=== PATIENT | female | born 1990 | race African-American/Black ===

== ENCOUNTER 2021-09-11 21:56 | Emergency (ER) | payer OTHER, SELFPAY ==
--- OUTSIDE RECORDS SUMMARY | 2021-09-11 22:04 | XMS REPORT | Continuity of Care Document ---
:[address] [facility] t Address [address] [place] [address] Care Team Providers Name Role Phone PCP, PATIENT DOES NOT HAVE A Primary Care Physician Unavaila RITESH Menard Attending Clinician Unavailable Ritesh Reyes Attending Clinician STEFANO ESTEBAN Attending Clinician Unavailable STEFANO ESTEBAN Attending Clinician Unavailable Stefano Esteban MD Attending Clinician Doctor Unassigned, [place] Attending Clinician Unavailable 1, [facility] Attending Clinician Unavailable Only, [facility] Test Attending Clinician Unavailable Kevin Philip MD Attending Clinician Roberto Mcnally DO Attending Clinician KEVIN PHILIP Attending Clinician Unavailable Lana Hewitt RN Attending Clinician Unavailable Pcp, Patient Does Not Have A Attending Clinician [phone] Jac Ramirez Attending Clinician PETEY ALVAREZ Attending Clinician Unavailable PETEY ALVAREZ Admitting Clinician Unavailable Payers Payer Name Policy Type Policy Number Effective Date Expiration Date Adelso TAYLOR [id number] 2020 ADMINISTRATION 00:00:00 [facility] [id number] 2020 00:00:00 [facility] [id number] 2016 00:00:00 Problems Condition Condition Condition Status Onset Resolution Last Treating Co mments Source Name Details Category Date Date Treatment Clinician Date S/P tubal S/P tubal Disease Active Uni vers ligation ligation 3-29 ity of 00:00: [place] 00 Medical Branch Need for Need for Disease Active 2014-02 Unive rs prophylact prophylact 0-05 it y of ic ic 00:00: [place] vaccinatio vaccinatio 00 Me dical n and n and Branch inoculatio inoculatio n against n against influenza influenza Supervisio Supervisio Disease Active 2014-02 U nivers n of n of 0-05 ity of high-risk high[place] 00:[place] [facility] with with Branch insufficie insufficie nt nt care, care, second second trimester trimester History of History of Disease Active 2014-02 U nivers depression depression 0-05 it y of 00:00: [place] 00 Medical Branch Headache Headache Disease Active Overview: Un eddie 9-28 ICD10 ity of 00:00: Diagnosis [place] 00 Term Medical [employer] Branch Utility Vaginal Vaginal Disease Active Univers bleeding bleeding 9-28 ity of before 22 before 22 00:00[place] 00 Medical gestation gestation Bran ch Atopic Atopic Disease Active Overview: Univer s dermatitis dermatitis 6-06 ICD10 it y of and and 00:00: Diagnosis [place] related related 00 Term Medical condition condition [employer] Br anch Utility 38 weeks 38 weeks Disease Resolve 2015-022016-02-18 2016-02-18 Univers gestation gestation d 2-13 00:00:00 16:33:30 ity of of of 00:00: [place] 00 [facility] Liveborn Liveborn Disease Resolve 2015-022016-02-18 2016-02-18 Univers infant by by d 2-13 00:00:00 16:33:30 ity of vaginal vaginal 00:00: [place] [facility] 36 weeks Disease Resolve 2015-022016-02-18 2016-02-18 Univers gestation gestation d 2-02 00:00:00 16:33:30 ity of of of 00:00: [place] 00 [facility] Diarrhea Diarrhea Disease Resolve 2015-022016-02-18 2016-02-18 Univers d 2-02 00:00:00 16:33:30 ity of 00:00: [place] 00 Medical Branch Threatened Threatened Disease Resolve 2015-022016-02-18 2016-02-18 Univers premature premature d 2-02 00:00:00 16:33:30 ity of labor labor 00:00: [place] affecting affecting 00 [facility] , , Br anch less than less than 37 weeks 37 weeks in third in third trimester, trimester, antepartum antepartum Allergies, Adverse Reactions, Alerts Allergy Allergy Status Severity Reaction(s) Onset Inactive Treating Comm ents Source Name Type Date Date Clinician Seafood/ Propensi Active Itching 2014-02 Unive rs Fish ty to 0-05 ity of adverse 00:00: [place] reaction 00 Medical s Branch SEAFOOD/ Food Active Hives 2014-02 Univers FISH 0-05 ity of 00:00: [place] 00 Medical Branch Social History Social Habit Start Date Stop Date Quantity Comments Source Exposure to Not sure [facility] SARS-CoV-2 [facility] (event) Branch History of Cigarette Smoker Universi ty of tobacco use [facility] Tobacco use and 2020-04-28 2020-04-28 Never used Universit y of exposure 00:00:00 00:00:00 [facility] Alcohol intake 2020-04-28 2020-04-28 Current University 00:00:00 00:00:00 non-drinker of [facility] [place] alcohol (finding) Branch Sex [birth year] Universit y of 00:00:00 00:00:00 [facility] Smoking Status Start Date Stop Date Source Never smoker [facility] Medications Ordered Filled Start Stop Current Ordering Indication Dosage Frequency Signature Comments Components Source Medication Medication Date Date Medication? Clinician (SIG) Name Name tetracaine 2021- No 1[drp] 1 Drop, U nivers (PONTOCAINE 04-02 Right Eye, i ty of ) 0.5 % 17:30: 16:46 ONCE, 1 [place] ophthalmic 00 :00 dose, On Medic al drops 1 Sat Branch Drop 04/02/21 at 1130, Routine fluorescein 2021- No 1{strip 1 Strip, Univers (FUL-MARGARITA) 04-02 } Right Eye, ity of ophthalmic 17:30: 16:46 ONCE, 1 [place] as strip 1 00 :00 dose, On Medical Strip Sat Branch 04/02/21 at 1130, SHAI
Fa culty member approving Non-formul tram medication : RITESH BALDWIN
Reason for non-formul tram use: SPECIFIC INDICATION FOR NONFORMULA RY PRODUCT PNV 2020- No Take by [facility]35-IRON-FA 2-03 02-03 mouth. ity o f #6-DHA ORAL 17:16: 00:00 [place] 20 :00 Medical Branch PNV 2020- No Take by [facility]35-IRON-FA 2-03 02-03 mouth. ity o f #6-DHA ORAL 17:16: 00:00 [place] 20 :00 [facility] Branch fluticasone Yes INSTILL 1 U nivers propionate 1-21 SPRAY IN [facility] 50 00:00: EACH [place] mcg/actuati 00 NOSTRIL Medic al on nasal TWICE A Branch spray DAY NEEDED FOR ALLERGIES fluticasone 2020-0 Yes INSTILL 1 U nivers propionate 1-21 SPRAY IN [facility] 50 00:00: EACH [place] mcg/actuati 00 NOSTRIL Medic al on nasal TWICE A Branch spray DAY NEEDED FOR ALLERGIES fluticasone 2020-0 Yes INSTILL 1 U nivers propionate 1-21 SPRAY IN [facility] 50 00:00: EACH [place] mcg/actuati 00 NOSTRIL Medic al on nasal TWICE A Branch spray DAY NEEDED FOR ALLERGIES fluticasone 2020-0 Yes INSTILL 1 U nivers propionate 1-21 SPRAY IN [facility] 50 00:00: EACH [place] mcg/actuati 00 NOSTRIL Medic al on nasal TWICE A Branch spray DAY NEEDED FOR ALLERGIES fluticasone 2020-0 Yes INSTILL 1 U nivers propionate 1-21 SPRAY IN [facility] 50 00:00: EACH [place] mcg/actuati 00 NOSTRIL Medic al on nasal TWICE A Branch spray DAY NEEDED FOR ALLERGIES fluticasone 2020-0 Yes INSTILL 1 U nivers propionate 1-21 SPRAY IN [facility] 50 00:00: EACH [place] mcg/actuati 00 NOSTRIL Medic al on nasal TWICE A Branch spray DAY NEEDED FOR ALLERGIES fluticasone 2020-0 Yes INSTILL 1 U nivers propionate 1-21 SPRAY IN [facility] 50 00:00: EACH [place] mcg/actuati 00 NOSTRIL Medic al on nasal TWICE A Branch spray DAY NEEDED FOR ALLERGIES fluticasone 2020-0 Yes INSTILL 1 U nivers propionate 1-21 SPRAY IN [facility] 50 00:00: EACH [place] mcg/actuati 00 NOSTRIL Medic al on nasal TWICE A Branch spray DAY NEEDED FOR ALLERGIES fluticasone 2020-0 Yes INSTILL 1 U nivers propionate 1-21 SPRAY IN [facility] 50 00:00: EACH [place] mcg/actuati 00 NOSTRIL Medic al on nasal TWICE A Branch spray DAY NEEDED FOR ALLERGIES fluticasone 2020-0 Yes INSTILL 1 U nivers propionate 1-21 SPRAY IN [facility] 50 00:00: EACH [place] mcg/actuati 00 NOSTRIL Medic al on nasal TWICE A Branch spray DAY NEEDED FOR ALLERGIES fluticasone 2020-0 Yes INSTILL 1 U nivers propionate 1-21 SPRAY IN [facility] 50 00:00: EACH [place] mcg/actuati 00 NOSTRIL Medic al on nasal TWICE A Branch spray DAY NEEDED FOR ALLERGIES fluticasone 2020-0 Yes INSTILL 1 U nivers propionate 1-21 SPRAY IN [place] [address] 00:00: EACH [place] mcg/actuati 00 NOSTRIL Medic al on nasal TWICE A Branch spray DAY NEEDED FOR ALLERGIES fluticasone 2020-0 Yes INSTILL 1 U nivers propionate 1-21 SPRAY IN [facility] 50 00:00: EACH [place] mcg/actuati 00 NOSTRIL Medic al on nasal TWICE A Branch spray DAY NEEDED FOR ALLERGIES fluticasone 2020-0 Yes INSTILL 1 U nivers propionate 1-21 SPRAY IN [facility] 50 00:00: EACH [place] mcg/actuati 00 NOSTRIL Medic al on nasal TWICE A Branch spray DAY NEEDED FOR ALLERGIES fluticasone 2020-0 Yes INSTILL 1 U nivers propionate 1-21 SPRAY IN [facility] 50 00:00: EACH [place] mcg/actuati 00 NOSTRIL Medic al on nasal TWICE A Branch spray DAY NEEDED FOR ALLERGIES fluticasone 2020-0 Yes INSTILL 1 U nivers propionate 1-21 SPRAY IN [facility] 50 00:00: EACH [place] mcg/actuati 00 NOSTRIL Medic al on nasal TWICE A Branch spray DAY NEEDED FOR ALLERGIES fluticasone 2020-0 Yes INSTILL 1 U nivers propionate 1-21 SPRAY IN ity o f 50 00:00: EACH [place] mcg/actuati 00 NOSTRIL Medic al on nasal TWICE A Branch spray DAY NEEDED FOR ALLERGIES fluticasone Yes INSTILL 1 U nivers propionate 1-21 SPRAY IN ity o f 50 00:00: EACH [place] mcg/actuati 00 NOSTRIL Medic al on nasal TWICE A Branch spray DAY NEEDED FOR ALLERGIES fluticasone Yes INSTILL 1 U nivers propionate 1-21 SPRAY IN ity o f 50 00:00: EACH [place] mcg/actuati 00 NOSTRIL Medic al on nasal TWICE A Branch spray DAY NEEDED FOR ALLERGIES fluticasone Yes INSTILL 1 U nivers propionate 1-21 SPRAY IN ity o f 50 00:00: EACH [place] mcg/actuati 00 NOSTRIL Medic al on nasal TWICE A Branch spray DAY NEEDED FOR ALLERGIES traZODone 2019-02 Yes TAKE ONE Univ ers 50 mg 0-26 TABLET BY ity of tablet 00:00: MOUTH AT [place] 00 BEDTIME Medical NEEDED FOR Branch SLEEP DO NOT TAKE WITH FLUCONAZOL E traZODone 2019-02 Yes TAKE ONE Univ ers 50 mg 0-26 TABLET BY ity of tablet 00:00: MOUTH AT [place] [address] BEDTIME Medical NEEDED FOR Branch SLEEP DO NOT TAKE WITH FLUCONAZOL E traZODone 2019-02 Yes TAKE ONE Univ ers 50 mg 0-26 TABLET BY ity of tablet 00:00: MOUTH AT [place] [address] BEDTIME Medical NEEDED FOR Branch SLEEP DO NOT TAKE WITH FLUCONAZOL E traZODone 2019-02 Yes TAKE ONE Univ ers 50 mg 0-26 TABLET BY ity of tablet 00:00: MOUTH AT [place] 00 BEDTIME Medical NEEDED FOR Branch SLEEP DO NOT TAKE WITH FLUCONAZOL E traZODone 2019-02 Yes TAKE ONE Univ ers 50 mg 0-26 TABLET BY ity of tablet 00:00: MOUTH AT [place] 00 BEDTIME Medical NEEDED FOR Branch SLEEP DO NOT TAKE WITH FLUCONAZOL E traZODone 2019-02 Yes TAKE ONE Univ ers 50 mg 0-26 TABLET BY ity of tablet 00:00: MOUTH AT [place] 00 BEDTIME Medical NEEDED FOR Branch SLEEP DO NOT TAKE WITH FLUCONAZOL E traZODone 2019-02 Yes TAKE ONE Univ ers 50 mg 0-26 TABLET BY ity of tablet 00:00: MOUTH AT [place] 00 BEDTIME Medical NEEDED FOR Branch SLEEP DO NOT TAKE WITH FLUCONAZOL E traZODone 2019-02 Yes TAKE ONE Univ ers 50 mg 0-26 TABLET BY ity of tablet 00:00: MOUTH AT [place] 00 BEDTIME Medical NEEDED FOR Branch SLEEP DO NOT TAKE WITH FLUCONAZOL E traZODone 2019-02 Yes TAKE ONE Univ ers 50 mg 0-26 TABLET BY ity of tablet 00:00: MOUTH AT [place] BEDTIME Medical NEEDED FOR Branch SLEEP DO NOT TAKE WITH FLUCONAZOL E traZODone 2019-02 Yes TAKE ONE Univ ers 50 mg 0-26 TABLET BY ity of tablet 00:00: MOUTH AT [place] BEDTIME Medical NEEDED FOR Branch SLEEP DO NOT TAKE WITH FLUCONAZOL E traZODone 2019-02 Yes TAKE ONE Univ ers 50 mg 0-26 TABLET BY ity of tablet 00:00: MOUTH AT [place] BEDTIME Medical NEEDED FOR Branch SLEEP DO NOT TAKE WITH FLUCONAZOL E traZODone 2019-02 Yes TAKE ONE Univ ers 50 mg 0-26 TABLET BY ity of tablet 00:00: MOUTH AT [place] BEDTIME Medical NEEDED FOR Branch SLEEP DO NOT TAKE WITH FLUCONAZOL E traZODone 2019-02 Yes TAKE ONE Univ ers 50 mg 0-26 TABLET BY ity of tablet 00:00: MOUTH AT [place] BEDTIME Medical NEEDED FOR Branch SLEEP DO NOT TAKE WITH FLUCONAZOL E traZODone 2019-02 Yes TAKE ONE Univ ers 50 mg 0-26 TABLET BY ity of tablet 00:00: MOUTH AT [place] 00 BEDTIME Medical NEEDED FOR Branch SLEEP DO NOT TAKE WITH FLUCONAZOL E traZODone 2019-02 Yes TAKE ONE Univ ers 50 mg 0-26 TABLET BY ity of tablet 00:00: MOUTH AT [place] [address] BEDTIME Medical NEEDED FOR Branch SLEEP DO NOT TAKE WITH FLUCONAZOL E traZODone 2019-02 Yes TAKE ONE Univ ers 50 mg 0-26 TABLET BY ity of tablet 00:00: MOUTH AT [place] 00 BEDTIME Medical NEEDED FOR Branch SLEEP DO NOT TAKE WITH FLUCONAZOL E traZODone 2020- Yes TAKE ONE Univ ers 50 mg 0-26 TABLET BY ity of tablet 00:00: MOUTH AT [place] 00 BEDTIME Medical NEEDED FOR Branch SLEEP DO NOT TAKE WITH FLUCONAZOL E traZODone 2019- Yes TAKE ONE Univ ers 50 mg 0-26 TABLET BY ity of tablet 00:00: MOUTH AT [place] 00 BEDTIME Medical NEEDED FOR Branch SLEEP DO NOT TAKE WITH FLUCONAZOL E traZODone 2019- Yes TAKE ONE Univ ers 50 mg 0-26 TABLET BY ity of tablet 00:00: MOUTH AT [place] 00 BEDTIME Medical NEEDED FOR Branch SLEEP DO NOT TAKE WITH FLUCONAZOL E traZODone 2019- Yes TAKE ONE Univ ers 50 mg 0-26 TABLET BY ity of tablet 00:00: MOUTH AT [place] 00 BEDTIME Medical NEEDED FOR Branch SLEEP DO NOT TAKE WITH FLUCONAZOL E albuterol 2020-0 Yes INHALE 1 Univ ers 90 9-15 PUFF BY ity of mcg/actuati 00:00: MOUTH [place] on inhaler 00 EVERY 6 Medica l HOURS Branch NEEDED FOR BREATHING buPROPion 2020-0 Yes TAKE ONE Univ ers XL 150 mg 9-15 TABLET BY ity o f 24 hr 00:00: MOUTH [place] tablet 00 DAILY Medical Branch cetirizine 2020-0 Yes TAKE ONE Uni vers 10 mg 9-15 TABLET BY ity of tablet 00:00: MOUTH 00 TWICE A Medical DAY Branch NEEDED FOR ALLERGIES albuterol 2020-0 Yes INHALE 1 Univ ers 90 9-15 PUFF BY ity of mcg/actuati 00:00: MOUTH [place] on inhaler 00 EVERY 6 Medica l HOURS Branch NEEDED FOR BREATHING buPROPion 2020-0 Yes TAKE ONE Univ ers XL 150 mg 9-15 TABLET BY ity o f 24 hr 00:00: MOUTH [place] tablet 00 DAILY Medical Branch cetirizine 2020-0 Yes TAKE ONE Uni vers 10 mg 9-15 TABLET BY ity of tablet 00:00: MOUTH [place] 00 TWICE A Medical DAY Branch NEEDED FOR ALLERGIES albuterol 2020-0 Yes INHALE 1 Univ ers 90 9-15 PUFF BY ity of mcg/actuati 00:00: MOUTH [place] on inhaler 00 EVERY 6 Medica l HOURS Branch NEEDED FOR BREATHING buPROPion 2020-0 Yes TAKE ONE Univ ers XL 150 mg 9-15 TABLET BY ity o f 24 hr 00:00: MOUTH [place] tablet 00 DAILY Medical Branch cetirizine 2020-0 Yes TAKE ONE Uni vers 10 mg 9-15 TABLET BY ity of tablet 00:00: MOUTH [place] 00 TWICE A Medical DAY Branch NEEDED FOR ALLERGIES albuterol 2020-0 Yes INHALE 1 Univ ers 90 9-15 PUFF BY ity of mcg/actuati 00:00: MOUTH [place] on inhaler 00 EVERY 6 Medica l HOURS Branch NEEDED FOR BREATHING buPROPion 2020-0 Yes TAKE ONE Univ ers XL 150 mg 9-15 TABLET BY ity o f 24 hr 00:00: MOUTH [place] tablet 00 DAILY Medical Branch cetirizine 2020-0 Yes TAKE ONE Uni vers 10 mg 9-15 TABLET BY ity of tablet 00:00: MOUTH [place] 00 TWICE A Medical DAY Branch NEEDED FOR ALLERGIES albuterol 2020-0 Yes INHALE 1 Univ ers 90 9-15 PUFF BY ity of mcg/actuati 00:00: MOUTH [place] on inhaler 00 EVERY 6 Medica l HOURS Branch NEEDED FOR BREATHING buPROPion 2020-0 Yes TAKE ONE Univ ers XL 150 mg 9-15 TABLET BY ity o f 24 hr 00:00: MOUTH [place] tablet 00 DAILY Medical Branch cetirizine 2020-0 Yes TAKE ONE Uni vers 10 mg 9-15 TABLET BY ity of tablet 00:00: MOUTH [place] 00 TWICE A Medical DAY Branch NEEDED FOR ALLERGIES albuterol 2020-0 Yes INHALE 1 Univ ers 90 9-15 PUFF BY ity of mcg/actuati 00:00: MOUTH [place] on inhaler 00 EVERY 6 Medica l HOURS Branch NEEDED FOR BREATHING buPROPion 2020-0 Yes TAKE ONE Univ ers XL 150 mg 9-15 TABLET BY ity o f 24 hr 00:00: MOUTH [place] tablet 00 DAILY Medical Branch cetirizine 2020-0 Yes TAKE ONE Uni vers 10 mg 9-15 TABLET BY ity of tablet 00:00: MOUTH [place] 00 TWICE A Medical DAY Branch NEEDED FOR ALLERGIES albuterol 2020-0 Yes INHALE 1 Univ ers 90 9-15 PUFF BY ity of mcg/actuati 00:00: MOUTH [place] on inhaler 00 EVERY 6 Medica l HOURS Branch NEEDED FOR BREATHING buPROPion 2020-0 Yes TAKE ONE Univ ers XL 150 mg 9-15 TABLET BY ity o f 24 hr 00:00: MOUTH [place] tablet 00 DAILY Medical Branch cetirizine 2020-0 Yes TAKE ONE Uni vers 10 mg 9-15 TABLET BY ity of tablet 00:00: MOUTH [place] 00 TWICE A Medical DAY Branch NEEDED FOR ALLERGIES albuterol 2020-0 Yes INHALE 1 Univ ers 90 9-15 PUFF BY ity of mcg/actuati 00:00: MOUTH [place] on inhaler 00 EVERY 6 Medica l HOURS Branch NEEDED FOR BREATHING buPROPion 2020-0 Yes TAKE ONE Univ ers XL 150 mg 9-15 TABLET BY ity o f 24 hr 00:00: MOUTH [place] tablet 00 DAILY Medical Branch cetirizine 2020-0 Yes TAKE ONE Uni vers 10 mg 9-15 TABLET BY ity of tablet 00:00: MOUTH [place] 00 TWICE A Medical DAY Branch NEEDED FOR ALLERGIES albuterol 2020-0 Yes INHALE 1 Univ ers 90 9-15 PUFF BY ity of mcg/actuati 00:00: MOUTH [place] on inhaler 00 EVERY 6 Medica l HOURS Branch NEEDED FOR BREATHING buPROPion 2020-0 Yes TAKE ONE Univ ers XL 150 mg 9-15 TABLET BY ity o f 24 hr 00:00: MOUTH [place] tablet 00 DAILY Medical Branch cetirizine 2020-0 Yes TAKE ONE Uni vers 10 mg 9-15 TABLET BY ity of tablet 00:00: MOUTH [place] 00 TWICE A Medical DAY Branch NEEDED FOR ALLERGIES albuterol 2020-0 Yes INHALE 1 Univ ers 90 9-15 PUFF BY ity of mcg/actuati 00:00: MOUTH [place] on inhaler 00 EVERY 6 Medica l HOURS Branch NEEDED FOR BREATHING buPROPion 2020-0 Yes TAKE ONE Univ ers XL 150 mg 9-15 TABLET BY ity o f 24 hr 00:00: MOUTH [place] tablet 00 DAILY Medical Branch cetirizine 2020-0 Yes TAKE ONE Uni vers 10 mg 9-15 TABLET BY ity of tablet 00:00: MOUTH [place] 00 TWICE A Medical DAY Branch NEEDED FOR ALLERGIES albuterol 2020-0 Yes INHALE 1 Univ ers 90 9-15 PUFF BY ity of mcg/actuati 00:00: MOUTH [place] on inhaler 00 EVERY 6 Medica l HOURS Branch NEEDED FOR BREATHING buPROPion 2020-0 Yes TAKE ONE Univ ers XL 150 mg 9-15 TABLET BY ity o f 24 hr 00:00: MOUTH [place] tablet 00 DAILY Medical Branch cetirizine 2020-0 Yes TAKE ONE Uni vers 10 mg 9-15 TABLET BY ity of tablet 00:00: MOUTH [place] 00 TWICE A Medical DAY Branch NEEDED FOR ALLERGIES buPROPion 2020-0 Yes TAKE ONE Univ ers XL 150 mg 9-15 TABLET BY ity o f 24 hr 00:00: MOUTH [place] tablet 00 DAILY Medical Branch cetirizine 2020-0 Yes TAKE ONE Uni vers 10 mg 9-15 TABLET BY ity of tablet 00:00: MOUTH [place] 00 TWICE A Medical DAY Branch NEEDED FOR ALLERGIES albuterol 2020-0 Yes INHALE 1 Univ ers 90 9-15 PUFF BY ity of mcg/actuati 00:00: MOUTH [place] on inhaler 00 EVERY 6 Medica l HOURS Branch NEEDED FOR BREATHING buPROPion 2020-0 Yes TAKE ONE Univ ers XL 150 mg 9-15 TABLET BY ity o f 24 hr 00:00: MOUTH [place] tablet 00 DAILY Medical Branch cetirizine 2020-0 Yes TAKE ONE Uni vers 10 mg 9-15 TABLET BY ity of tablet 00:00: MOUTH [place] 00 TWICE A Medical DAY Branch NEEDED FOR ALLERGIES albuterol 2020-0 Yes INHALE 1 Univ ers 90 9-15 PUFF BY ity of mcg/actuati 00:00: MOUTH [place] on inhaler 00 EVERY 6 Medica l HOURS Branch NEEDED FOR BREATHING buPROPion 2020-0 Yes TAKE ONE Univ ers XL 150 mg 9-15 TABLET BY ity o f 24 hr 00:00: MOUTH [place] tablet 00 DAILY Medical Branch cetirizine 2020-0 Yes TAKE ONE Uni vers 10 mg 9-15 TABLET BY ity of tablet 00:00: MOUTH [place] 00 TWICE A Medical DAY Branch NEEDED FOR ALLERGIES albuterol 2020-0 Yes INHALE 1 Univ ers 90 9-15 PUFF BY ity of mcg/actuati 00:00: MOUTH [place] on inhaler 00 EVERY 6 Medica l HOURS Branch NEEDED FOR BREATHING buPROPion 2020-0 Yes TAKE ONE Univ ers XL 150 mg 9-15 TABLET BY ity o f 24 hr 00:00: MOUTH [place] tablet 00 DAILY Medical Branch cetirizine 2020-0 Yes TAKE ONE Uni vers 10 mg 9-15 TABLET BY ity of tablet 00:00: MOUTH [place] 00 TWICE A Medical DAY Branch NEEDED FOR ALLERGIES albuterol 2020-0 Yes INHALE 1 Univ ers 90 9-15 PUFF BY ity of mcg/actuati 00:00: MOUTH on inhaler 00 EVERY 6 Medica l HOURS Branch NEEDED FOR BREATHING buPROPion 2020-0 Yes TAKE ONE Univ ers XL 150 mg 9-15 TABLET BY ity o f 24 hr 00:00: MOUTH [place] tablet 00 DAILY Medical Branch cetirizine 2020-0 Yes TAKE ONE Uni vers 10 mg 9-15 TABLET BY ity of tablet 00:00: MOUTH [place] 00 TWICE A Medical DAY Branch NEEDED FOR ALLERGIES albuterol 2020-0 Yes INHALE 1 Univ ers 90 9-15 PUFF BY ity of mcg/actuati 00:00: MOUTH on inhaler 00 EVERY 6 Medica l HOURS Branch NEEDED FOR BREATHING buPROPion 2020-0 Yes TAKE ONE Univ ers XL 150 mg 9-15 TABLET BY ity o f 24 hr 00:00: MOUTH [place] tablet 00 DAILY Medical Branch cetirizine 2020-0 Yes TAKE ONE Uni vers 10 mg 9-15 TABLET BY ity of tablet 00:00: MOUTH 00 TWICE A Medical DAY Branch NEEDED FOR ALLERGIES albuterol 2020-0 Yes INHALE 1 Univ ers 90 9-15 PUFF BY ity of mcg/actuati 00:00: MOUTH on inhaler 00 EVERY 6 Medica l HOURS Branch NEEDED FOR BREATHING buPROPion 2020-0 Yes TAKE ONE Univ ers XL 150 mg 9-15 TABLET BY ity o f 24 hr 00:00: MOUTH [place] tablet 00 DAILY Medical Branch cetirizine 2020-0 Yes TAKE ONE Uni vers 10 mg 9-15 TABLET BY ity of tablet 00:00: MOUTH [place] 00 TWICE A Medical DAY Branch NEEDED FOR ALLERGIES albuterol 2020-0 Yes INHALE 1 Univ ers 90 9-15 PUFF BY ity of mcg/actuati 00:00: MOUTH [place] on inhaler 00 EVERY 6 Medica l HOURS Branch NEEDED FOR BREATHING buPROPion 2020-0 Yes TAKE ONE Univ ers XL 150 mg 9-15 TABLET BY ity o f 24 hr 00:00: MOUTH [place] tablet 00 DAILY Medical Branch cetirizine 2020-0 Yes TAKE ONE Uni vers 10 mg 9-15 TABLET BY ity of tablet 00:00: MOUTH [place] 00 TWICE A Medical DAY Branch NEEDED FOR ALLERGIES albuterol 2020-0 Yes INHALE 1 Univ ers 90 9-15 PUFF BY ity of mcg/actuati 00:00: MOUTH [place] on inhaler 00 EVERY 6 Medica l HOURS Branch NEEDED FOR BREATHING buPROPion 2020-0 Yes TAKE ONE Univ ers XL 150 mg 9-15 TABLET BY ity o f 24 hr 00:00: MOUTH [place] tablet 00 DAILY Medical Branch cetirizine 2020-0 Yes TAKE ONE Uni vers 10 mg 9-15 TABLET BY ity of tablet 00:00: MOUTH [place] 00 TWICE A Medical DAY Branch NEEDED FOR ALLERGIES albuterol 2020-0 Yes INHALE 1 Univ ers 90 9-15 PUFF BY ity of mcg/actuati 00:00: MOUTH [place] on inhaler 00 EVERY 6 Medica l HOURS Branch NEEDED FOR BREATHING ibuprofen 2020-0 2020- No 800mg 800 mg, Uni vers (IBU) -27 07-22 Oral, ity of tablet 800 22:45: 21:46 ONCE, 1 Rob as mg 00 :00 dose, [facility] 07/28/19 at Branch 1745, SHAI benzonatate 2020-0 Yes [id number] 200mg Take 1 Univers 200 mg 6-22 capsule by ity of capsule 00:00: mouth 3 00 (three) Medical times Branch daily as needed for Cough for up to 20 doses. ondansetron 2020-0 Yes [id number] 4mg Take 1 Univers (ZOFRAN 6-22 tablet by ity of ODT) 4 mg 00:00: mouth [place] disintegrat 00 every 8 Medic al ing tablet (eight) Branch hours as needed for Nausea and Vomiting (N/V). benzonatate 2020-0 Yes [id number] 200mg Take 1 Univers 200 mg 6-22 capsule by ity of capsule 00:00: mouth 3 [place] 00 (three) Medical times Branch daily as needed for Cough for up to 20 doses. ondansetron 2020-0 Yes [id number] 4mg Take 1 Univers (ZOFRAN 6-22 tablet by ity of ODT) 4 mg 00:00: mouth [place] disintegrat 00 every 8 Medic al ing tablet (eight) Branch hours as needed for Nausea and Vomiting (N/V). benzonatate 2020-0 Yes [id number] 200mg Take 1 Univers 200 mg 6-22 capsule by ity of capsule 00:00: mouth 3 (three) Medical times Branch daily as needed for Cough for up to 20 doses. ondansetron 2020-0 Yes [id number] 4mg Take 1 Univers (ZOFRAN 6-22 tablet by ity of ODT) 4 mg 00:00: mouth [place] disintegrat 00 every 8 Medic al ing tablet (eight) Branch hours as needed for Nausea and Vomiting (N/V). benzonatate 2020-0 Yes [id number] 200mg Take 1 Univers 200 mg 6-22 capsule by ity of capsule 00:00: mouth 3 [place] (three) Medical times Branch daily as needed for Cough for up to 20 doses. ondansetron 2020-0 Yes [id number] 4mg Take 1 Univers (ZOFRAN 6-22 tablet by ity of ODT) 4 mg 00:00: mouth [place] disintegrat 00 every 8 Medic al ing tablet (eight) Branch hours as needed for Nausea and Vomiting (N/V). benzonatate 2020-0 Yes [id number] 200mg Take 1 Univers 200 mg 6-22 capsule by ity of capsule 00:00: mouth 3 [place] 00 (three) Medical times Branch daily as needed for Cough for up to 20 doses. ondansetron 2020-0 Yes [id number] 4mg Take 1 [facility] (ZOFRAN 6-22 tablet by ity of ODT) 4 mg 00:00: mouth [place] disintegrat 00 every 8 Medic al ing tablet (eight) Branch hours as needed for Nausea and Vomiting (N/V). benzonatate 2020-0 Yes [id number] 200mg Take 1 [facility] 200 mg 6-22 capsule by ity of capsule 00:00: mouth 3 (three) Medical times Branch daily as needed for Cough for up to 20 doses. ondansetron 2020-0 Yes [id number] 4mg Take 1 [facility] (ZOFRAN 6-22 tablet by ity of ODT) 4 mg 00:00: mouth [place] disintegrat 00 every 8 Medic al ing tablet (eight) Branch hours as needed for Nausea and Vomiting (N/V). benzonatate 2020-0 2021- No [id number] 200mg Take 1 [facility] 200 mg 6-22 02-03 capsule by ity of capsule 00:00: 00:00 mouth 3 [place] 00 :00 (three) Medical times Branch daily as needed for Cough for up to 20 doses. ondansetron 2020- No [id number] 4mg Take 1 [facility] (ZOFRAN 07-27- tablet by ity of ODT) 4 mg 00:00: 00:00 mouth [place] disintegrat 00 :00 every 8 Medic al ing tablet (eight) Branch hours as needed for Nausea and Vomiting (N/V). benzonatate 2020- No [id number] 200mg Take 1 [facility] 200 mg 07-27 capsule by ity of capsule 00:00: 00:00 mouth 3 [place] 00 :00 (three) Medical times Branch daily as needed for Cough for up to 20 doses. ondansetron 2020- No [id number] 4mg Take 1 [facility] (ZOFRAN 07-27- tablet by ity of ODT) 4 mg 00:00: 00:00 mouth [place] disintegrat 00 :00 every 8 Medic al ing tablet (eight) Branch hours as needed for Nausea and Vomiting (N/V). PNV 2017 Yes Take by [facility] [id number] 1-19 mouth. ity of #6-DHA ORAL 17:59: [address] PNV Yes Take by [facility] #[id number] 1-19 mouth. ity of #6-DHA ORAL 17:59: [address] Yes Take by [facility] #[id number] 1-19 mouth. ity of #6-DHA ORAL 17:59: [address] PNV Yes Take by [facility] #[id number] 1-19 mouth. ity of #6-DHA ORAL 17:59: [address] PNV Yes Take by [facility] #[id number] 1-19 mouth. ity of #6-DHA ORAL 17:59: [address] PNV 2017 Yes Take by [facility] #[id number] 1-19 mouth. ity of #6-DHA ORAL 17:59: [address] ibuprofen 2015- Yes 600mg Take 1 [facility] rs (MOTRIN) 2-14 tablet by ity of 600 mg 00:00: mouth [place] tablet 00 every 6 Medical (six) Branch hours as needed for Pain (scale 1-3) or Pain (scale 4-6). Take with food or milk. 2015-02 Yes 1{tbl} Take 1 [facility] vitamin 2-14 tablet by ity of w/FA 00:00: mouth [place] (PRENATABS 00 daily. Medical RX) tablet Branch ferrous 2015-02 Yes 325mg Take 1 [facility] sulfate 325 2-14 tablet by ity of mg (65 mg 00:00: mouth 2 [place] iron) 00 (two) Medical tablet times Branch daily. docusate 2015-02 Yes 240mg Take 1 [facility] calcium 2-14 capsule by ity of (SURFAK) 00:00: mouth once [place] 240 mg 00 daily as Medical capsule needed for Branch Constipati on. ibuprofen 2015-02 Yes 600mg Take 1 [facility] (MOTRIN) 2-14 tablet by ity of 600 mg 00:00: mouth [place] tablet 00 every 6 Medical (six) Branch hours as needed for Pain (scale 1-3) or Pain (scale 4-6). Take with food or milk. 2015-02 Yes 1{tbl} Take 1 [facility] vitamin 2-14 tablet by ity of w/FA 00:00: mouth [place] (PRENATABS 00 daily. Medical RX) tablet Branch ferrous 2015-02 Yes 325mg Take 1 [facility] sulfate 325 2-14 tablet by ity of mg (65 mg 00:00: mouth 2 [place] iron) 00 (two) Medical tablet times Branch daily. docusate 2015-02 Yes 240mg Take 1 [facility] calcium 2-14 capsule by ity of (SURFAK) 00:00: mouth once [place] 240 mg 00 daily as Medical capsule needed for Branch Constipati on. ibuprofen 2015-02 Yes 600mg Take 1 [facility] (MOTRIN) 2-14 tablet by ity of 600 mg 00:00: mouth [place] tablet 00 every 6 Medical (six) Branch hours as needed for Pain (scale 1-3) or Pain (scale 4-6). Take with food or milk. 2015-02 Yes 1{tbl} Take 1 [facility] vitamin 2-14 tablet by ity of w/FA 00:00: mouth [place] (PRENATABS 00 daily. Medical RX) tablet Branch ferrous 2015-02 Yes 325mg Take 1 [facility] sulfate 325 2-14 tablet by ity of mg (65 mg 00:00: mouth 2 [place] iron) 00 (two) Medical tablet times Branch daily. docusate 2015-02 Yes 240mg Take 1 Un[facility] s calcium 2-14 capsule by ity of (SURFAK) 00:00: mouth once [place] 240 mg 00 daily as Medical capsule needed for Branch Constipati on. ibuprofen 2015-02 Yes 600mg Take 1 [facility] rs (MOTRIN) 2-14 tablet by ity of 600 mg 00:00: mouth [place] tablet 00 every 6 Medical (six) Branch hours as needed for Pain (scale 1-3) or Pain (scale 4-6). Take with food or milk. 2015-02 Yes 1{tbl} Take 1 [facility] vitamin 2-14 tablet by ity of w/FA 00:00: mouth [place] (PRENATABS 00 daily. Medical RX) tablet Branch ferrous 2015-02 Yes 325mg Take 1 [facility] sulfate 325 2-14 tablet by ity of mg (65 mg 00:00: mouth 2 [place] iron) 00 (two) Medical tablet times Branch daily. docusate 2015-02 Yes 240mg Take 1 [facility] calcium 2-14 capsule by ity of (SURFAK) 00:00: mouth once [place] 240 mg 00 daily as Medical capsule needed for Branch Constipati on. ibuprofen 2015-02 Yes 600mg Take 1 [facility] (MOTRIN) 2-14 tablet by ity of 600 mg 00:00: mouth [place] tablet 00 every 6 Medical (six) Branch hours as needed for Pain (scale 1-3) or Pain (scale 4-6). Take with food or milk. 2015-02 Yes 1{tbl} Take 1 [facility] rs vitamin 2-14 tablet by ity of w/FA 00:00: mouth [place] (PRENATABS 00 daily. Medical RX) tablet Branch ferrous 2015-02 Yes 325mg Take 1 [facility] sulfate 325 2-14 tablet by ity of mg (65 mg 00:00: mouth 2 [place] iron) 00 (two) Medical tablet times Branch daily. docusate 2015-02 Yes 240mg Take 1 Univer s calcium 2-14 capsule by ity of (SURFAK) 00:00: mouth once [place] 240 mg 00 daily as Medical capsule needed for Branch Constipati on. ibuprofen 2015-02 Yes 600mg Take 1 [facility] rs (MOTRIN) 2-14 tablet by ity of 600 mg 00:00: mouth [place] tablet 00 every 6 Medical (six) Branch hours as needed for Pain (scale 1-3) or Pain (scale 4-6). Take with food or milk. 2015-02 Yes 1{tbl} Take 1 [facility] rs vitamin 2-14 tablet by ity of w/FA 00:00: mouth [place] (PRENATABS 00 daily. Medical RX) tablet Branch ferrous 2015-02 Yes 325mg Take 1 [facility] sulfate 325 2-14 tablet by ity of mg (65 mg 00:00: mouth 2 [place] iron) 00 (two) Medical tablet times Branch daily. docusate 2015-02 Yes 240mg Take 1 Univer s calcium 2-14 capsule by ity of (SURFAK) 00:00: mouth once [place] 240 mg 00 daily as Medical capsule needed for Branch Constipati on. ferrous 2015-02- No 325mg Take 1 Univer s sulfate 325 2-14 02-03 tablet by it y of mg (65 mg 00:00: 00:00 mouth 2 [place] iron[place] 00 :00 (two) Medical tablet times Branch daily. docusate 2015-02- No 240mg Take 1 Unive rs calcium 2-14 02-03 capsule by ity o f (SURFAK) 00:00: 00:00 mouth once [place] 240 mg 00 :00 daily as Medical capsule needed for Branch Constipati on. ibuprofen 2015-02- No 600mg Take 1 Univ ers (MOTRIN) 2-14 02-03 tablet by ity o f 600 mg 00:00: 00:00 mouth [place] tablet 00 :00 every 6 Medical (six) Branch hours as needed for Pain (scale 1-3) or Pain (scale 4-6). Take with food or milk. 2015-02- No 1{tbl} Take 1 Univ ers vitamin 2-14 02-03 tablet by ity of w/FA 00:00: 00:00 mouth [place] (PRENATABS 00 :00 daily. Medical RX) tablet Branch ferrous 2015-02- No 325mg Take 1 Univer s sulfate 325 2-14 02-03 tablet by it y of mg (65 mg 00:00: 00:00 mouth [place] iron[place] 00 :00 (two) Medical tablet times Branch daily. docusate 2015-02- No 240mg Take 1 Unive rs calcium 2-14 02-03 capsule by ity o f (SURFAK) 00:00: 00:00 mouth once [place] 240 mg 00 :00 daily as Medical capsule needed for Branch Constipati on. ibuprofen 2015-02- No 600mg Take 1 Univ ers (MOTRIN) 03-21 tablet by ity o f 600 mg 00:00: 00:00 mouth [place] tablet 00 :00 every 6 Medical (six) Branch hours as needed for Pain (scale 1-3) or Pain (scale 4-6). Take with food or milk. 2015-02- No 1{tbl} Take 1 Univ ers vitamin 03-21 tablet by ity of w/FA 00:00: 00:00 mouth [place] (PRENATABS 00 :00 daily. Medical RX) tablet Branch Immunizations Ordered Filled Immunization Date Status Comments [facility] e Immunization Name Name Influenza Virus 2018-11-11 Completed Universit y of Vaccine 00:00:00 [facility] Influenza Virus 2018-11-11 Completed Universit y of Vaccine 00:00:00 [facility] Influenza Virus 2018-11-11 Completed Universit y of Vaccine 00:00:00 [facility] Influenza Virus 2018-11-11 Completed Universit y of Vaccine 00:00:00 [facility] Influenza Virus 2018-11-11 Completed Universit y of Vaccine 00:00:00 [facility] Influenza Virus 2018-11-11 Completed Universit y of Vaccine 00:00:00 [facility] Influenza Virus 2018-11-11 Completed Universit y of Vaccine 00:00:00 [facility] Influenza Virus 2018-11-11 Completed Universit y of Vaccine 00:00:00 [facility] Influenza Virus 2018-11-11 Completed Universit y of Vaccine 00:00:00 [facility] Influenza Virus 2018-11-11 Completed Universit y of Vaccine 00:00:00 [facility] Influenza Virus 2018-11-11 Completed Universit y of Vaccine 00:00:00 [facility] Influenza Virus 2018-11-11 Completed Universit y of Vaccine 00:00:00 [facility] Influenza Virus 2018-11-11 Completed Universit y of Vaccine 00:00:00 [facility] Influenza Virus 2018-11-11 Completed Universit y of Vaccine 00:00:00 [facility] Influenza Virus 2018-11-11 Completed Universit y of Vaccine 00:00:00 [facility] Influenza Virus 2018-11-11 Completed Universit y of Vaccine 00:00:00 [facility] Influenza Virus 2018-11-11 Completed Universit y of Vaccine 00:00:00 [facility] Influenza Virus 2018-11-11 Completed Universit y of Vaccine 00:00:00 [facility] Influenza Virus 2018-11-11 Completed Universit y of Vaccine 00:00:00 [facility] Influenza Virus 2018-11-11 Completed Universit y of Vaccine 00:00:00 [facility] Influenza Virus 2016-12-12 Completed Universit y of Vaccine Quad IM 3+ 00:00:00 [facility] Influenza Virus 2016-12-12 Completed Universit y of Vaccine Quad IM 3+ 00:00:00 [facility] Influenza Virus 2016-12-12 Completed Universit y of Vaccine Quad IM 3+ 00:00:00 [facility] Influenza Virus 2016-12-12 Completed Universit y of Vaccine Quad IM 3+ 00:00:00 [facility] Influenza Virus 2016-12-12 Completed Universit y of Vaccine Quad IM 3+ 00:00:00 [facility] Influenza Virus 2016-12-12 Completed Universit y of Vaccine [facility] IM 3+ 00:00:00 [facility] Influenza Virus 2016-12-12 Completed Universit y of Vaccine Quad IM 3+ 00:00:00 [facility] Influenza Virus 2016-12-12 Completed Universit y of Vaccine [facility] IM 3+ 00:00:00 [facility] Influenza Virus 2016-12-12 Completed Universit y of Vaccine [facility] IM 3+ 00:00:00 [facility] Influenza Virus 2016-12-12 Completed Universit y of Vaccine Quad IM 3+ 00:00:00 [facility] Influenza Virus 2016-12-12 Completed Universit y of Vaccine Quad IM 3+ 00:00:00 [facility] Influenza Virus 2016-12-12 Completed Universit y of Vaccine Quad IM 3+ 00:00:00 [facility] Influenza Virus 2016-12-12 Completed Universit y of Vaccine Quad IM 3+ 00:00:00 [facility] Influenza Virus 2016-12-12 Completed Universit y of Vaccine Quad IM 3+ 00:00:00 [facility] Influenza Virus 2016-12-12 Completed Universit y of Vaccine Quad IM 3+ 00:00:00 [facility] Influenza Virus 2016-12-12 Completed Universit y of Vaccine Quad IM 3+ 00:00:00 [facility] Influenza Virus 2016-12-12 Completed Universit y of Vaccine Quad IM 3+ 00:00:00 [facility] Influenza Virus 2016-12-12 Completed Universit y of Vaccine [facility] IM 3+ 00:00:00 [facility] Influenza Virus 2016-12-12 Completed Universit y of Vaccine Quad IM 3+ 00:00:00 [facility] Influenza Virus 2016-12-12 Completed Universit y of Vaccine [facility] IM 3+ 00:00:00 [facility] TDAP 2015-11-19 Completed University of 00:00:00 [facility] Influenza Virus 2015-11-19 Completed Universit y of Vaccine Quad IM 3+ 00:00:00 [facility] TDAP 2015-11-19 Completed University of 00:00:00 [facility] Influenza Virus 2015-11-19 Completed Universit y of Vaccine Quad IM 3+ 00:00:00 [facility] TDAP 2015-11-19 Completed University of 00:00:00 [facility] Influenza Virus 2015-11-19 Completed Universit y of Vaccine Quad IM 3+ 00:00:00 [facility] TDAP 2015-11-19 Completed University of 00:00:00 [facility] Influenza Virus 2015-11-19 Completed Universit y of Vaccine Quad IM 3+ 00:00:00 [facility] TDAP 2015-11-19 Completed University of 00:00:00 [facility] Influenza Virus 2015-11-19 Completed Universit y of Vaccine Quad IM 3+ 00:00:00 [facility] TDAP 2015-11-19 Completed University of 00:00:00 [facility] Influenza Virus 2015-11-19 Completed Universit y of Vaccine Quad IM 3+ 00:00:00 [facility] TDAP 2015-11-19 Completed University of 00:00:00 [facility] Influenza Virus 2015-11-19 Completed Universit y of Vaccine Quad IM 3+ 00:00:00 [facility] TDAP 2015-11-19 Completed University of 00:00:00 [facility] Influenza Virus 2015-11-19 Completed Universit y of Vaccine Quad IM 3+ 00:00:00 [facility] TDAP 2015-11-19 Completed University of 00:00:00 [facility] Influenza Virus 2015-11-19 Completed Universit y of Vaccine Quad IM 3+ 00:00:00 [facility] TDAP 2015-11-19 Completed University of 00:00:00 [facility] Influenza Virus 2015-11-19 Completed Universit y of Vaccine Quad IM 3+ 00:00:00 [facility] TDAP 2015-11-19 Completed University of 00:00:00 [facility] Influenza Virus 2015-11-19 Completed Universit y of Vaccine Quad IM 3+ 00:00:00 [facility] TDAP 2015-11-19 Completed University of 00:00:00 [facility] Influenza Virus 2015-11-19 Completed Universit y of Vaccine Quad IM 3+ 00:00:00 [facility] TDAP 2015-11-19 Completed University of 00:00:00 [facility] Influenza Virus 2015-11-19 Completed Universit y of Vaccine Quad IM 3+ 00:00:00 [facility] TDAP 2015-11-19 Completed University of 00:00:00 [facility] Influenza Virus 2015-11-19 Completed Universit y of Vaccine Quad IM 3+ 00:00:00 [facility] TDAP 2015-11-19 Completed University of 00:00:00 [facility] Influenza Virus 2015-11-19 Completed Universit y of Vaccine Quad IM 3+ 00:00:00 [facility] TDAP 2015-11-19 Completed University of 00:00:00 [facility] Influenza Virus 2015-11-19 Completed Universit y of Vaccine Quad IM 3+ 00:00:00 [facility] TDAP 2015-11-19 Completed University of 00:00:00 [facility] Influenza Virus 2015-11-19 Completed Universit y of Vaccine Quad IM 3+ 00:00:00 [facility] TDAP 2015-11-19 Completed University of 00:00:00 [facility] Influenza Virus 2015-11-19 Completed Universit y of Vaccine Quad IM 3+ 00:00:00 [facility] TDAP 2015-11-19 Completed University of 00:00:00 [facility] Influenza Virus 2015-11-19 Completed Universit y of Vaccine Quad IM 3+ 00:00:00 [facility] TDAP 2015-11-19 Completed University of 00:00:00 [facility] Influenza Virus 2015-11-19 Completed Universit y of Vaccine Quad IM 3+ 00:00:00 [facility] TDAP 2015-11-19 Completed University of 00:00:00 [facility] Influenza Virus 2015-11-19 Completed Universit y of Vaccine Quad IM 3+ 00:00:00 [facility] TDAP 2015-11-19 Completed University of 00:00:00 [facility] Influenza Virus 2015-11-19 Completed Universit y of Vaccine Quad IM 3+ 00:00:00 [facility] TDAP 2015-11-19 Completed University of 00:00:00 [facility] Influenza Virus 2015-11-19 Completed Universit y of Vaccine Quad IM 3+ 00:00:00 [facility] TDAP 2015-11-19 Completed University of 00:00:00 [facility] Influenza Virus 2015-11-19 Completed Universit y of Vaccine Quad IM 3+ 00:00:00 [facility] TDAP 2015-11-19 Completed University of 00:00:00 [facility] Influenza Virus 2015-11-19 Completed Universit y of Vaccine Quad IM 3+ 00:00:00 [facility] TDAP 2015-11-19 Completed University of 00:00:00 [facility] Influenza Virus 2015-11-19 Completed Universit y of Vaccine Quad IM 3+ 00:00:00 [facility] TDAP 2015-01-26 Completed University of 00:00:00 [facility] TDAP 2015-01-26 Completed University of 00:00:00 [facility] TDAP 2015-01-26 Completed University of 00:00:00 [facility] TDAP 2015-01-26 Completed University of 00:00:00 [facility] TDAP 2015-01-26 Completed University of 00:00:00 [facility] TDAP 2015-01-26 Completed University of 00:00:00 [facility] TDAP 2015-01-26 Completed University of 00:00:00 [facility] TDAP 2015-01-26 Completed University of 00:00:00 [facility] TDAP 2015-01-26 Completed University of 00:00:00 [facility] TDAP 2015-01-26 Completed University of 00:00:00 [facility] TDAP 2015-01-26 Completed University of 00:00:00 [facility] TDAP 2015-01-26 Completed University of 00:00:00 [facility] TDAP 2015-01-26 Completed University of 00:00:00 [facility] TDAP 2015-01-26 Completed University of 00:00:00 [facility] TDAP 2015-01-26 Completed University of 00:00:00 [facility] TDAP 2015-01-26 Completed University of 00:00:00 [facility] Branch TDAP 2015-01-26 Completed University of 00:00:00 [facility] TDAP 2015-01-26 Completed University of 00:00:00 [facility] TDAP 2015-01-26 Completed University of 00:00:00 [facility] TDAP 2015-01-26 Completed University of 00:00:00 [facility] TDAP 2015-01-26 Completed University of 00:00:00 [facility] TDAP 2015-01-26 Completed University of 00:00:00 [facility] TDAP 2015-01-26 Completed University of 00:00:00 [facility] TDAP 2015-01-26 Completed University of 00:00:00 [facility] TDAP 2015-01-26 Completed University of 00:00:00 [facility] TDAP 2015-01-26 Completed University of 00:00:00 [facility] Influenza Virus 2014-11-09 Completed Universit y of Vaccine Quad IM 3+ 00:00:00 [facility] Influenza Virus 2014-11-09 Completed Universit y of Vaccine Quad IM 3+ 00:00:00 [facility] Influenza Virus 2014-11-09 Completed Universit y of Vaccine Quad IM 3+ 00:00:00 [facility] Influenza Virus 2014-11-09 Completed Universit y of Vaccine Quad IM 3+ 00:00:00 [facility] Influenza Virus 2014-11-09 Completed Universit y of Vaccine Quad IM 3+ 00:00:00 [facility] Influenza Virus 2014-11-09 Completed Universit y of Vaccine Quad IM 3+ 00:00:00 [facility] Influenza Virus 2014-11-09 Completed Universit y of Vaccine Quad IM 3+ 00:00:00 [facility] Influenza Virus 2014-11-09 Completed Universit y of Vaccine Quad IM 3+ 00:00:00 [facility] Influenza Virus 2014-11-09 Completed Universit y of Vaccine Quad IM 3+ 00:00:00 [facility] Influenza Virus 2014-11-09 Completed Universit y of Vaccine Quad IM 3+ 00:00:00 [facility] Influenza Virus 2014-11-09 Completed Universit y of Vaccine Quad IM 3+ 00:00:00 [facility] Influenza Virus 2014-11-09 Completed Universit y of Vaccine Quad IM 3+ 00:00:00 [facility] Influenza Virus 2014-11-09 Completed Universit y of Vaccine Quad IM 3+ 00:00:00 [facility] Influenza Virus 2014-11-09 Completed Universit y of Vaccine Quad IM 3+ 00:00:00 [facility] Influenza Virus 2014-11-09 Completed Universit y of Vaccine Quad IM 3+ 00:00:00 [facility] Influenza Virus 2014-11-09 Completed Universit y of Vaccine Quad IM 3+ 00:00:00 [facility] Influenza Virus 2014-11-09 Completed Universit y of Vaccine Quad IM 3+ 00:00:00 [facility] Influenza Virus 2014-11-09 Completed Universit y of Vaccine Quad IM 3+ 00:00:00 [facility] Influenza Virus 2014-11-09 Completed Universit y of Vaccine Quad IM 3+ 00:00:00 [facility] Influenza Virus 2014-11-09 Completed Universit y of Vaccine Quad IM 3+ 00:00:00 [facility] Influenza Virus 2014-11-09 Completed Universit y of Vaccine Quad IM 3+ 00:00:00 [facility] Influenza Virus 2014-11-09 Completed Universit y of Vaccine Quad IM 3+ 00:00:00 [facility] Influenza Virus 2014-11-09 Completed Universit y of Vaccine Quad IM 3+ 00:00:00 [facility] Influenza Virus 2014-11-09 Completed Universit y of Vaccine Quad IM 3+ 00:00:00 [facility] Influenza Virus 2014-11-09 Completed Universit y of Vaccine Quad IM 3+ 00:00:00 [facility] Influenza Virus 2014-11-09 Completed Universit y of Vaccine Quad IM 3+ 00:00:00 [facility] TDAP 2014-01-15 Completed University of 00:00:00 [facility] TDAP 2014-01-15 Completed University of 00:00:00 [facility] TDAP 2014-01-15 Completed University of 00:00:00 [facility] TDAP 2014-01-15 Completed University of 00:00:00 [facility] TDAP 2014-01-15 Completed University of 00:00:00 [facility] TDAP 2014-01-15 Completed University of 00:00:00 [facility] TDAP 2014-01-15 Completed University of 00:00:00 [facility] TDAP 2014-01-15 Completed University of 00:00:00 [facility] TDAP 2014-01-15 Completed [facility] 00:00:00 [facility] TDAP 2014-01-15 Completed [facility] 00:00:00 [facility] TDAP 2014-01-15 Completed [facility] 00:00:00 [facility] TDAP 2014-01-15 Completed [facility] 00:00:00 [facility] TDAP 2014-01-15 Completed [facility] 00:00:00 [facility] TDAP 2014-01-15 Completed [facility] 00:00:00 [facility] TDAP 2014-01-15 Completed [facility] 00:00:00 [facility] TDAP 2014-01-15 Completed [facility] 00:00:00 [facility] TDAP 2014-01-15 Completed [facility] 00:00:00 [facility] TDAP 2014-01-15 Completed [facility] 00:00:00 [facility] TDAP 2014-01-15 Completed [facility] 00:00:00 [facility] TDAP 2014-01-15 Completed University of 00:00:00 [facility] Vital Signs Vital Name Observation Time Observation Value Comments Source Systolic blood 2021-04-02 15:55:00 125 mm[Hg] Univer sity of pressure [facility] Diastolic blood 2021-04-02 15:55:00 90 mm[Hg] Unive rsity of pressure [facility] Heart rate 2021-04-02 15:55:00 87 /min [facility] Body temperature 2021-04-02 15:55:00 36.56 Lilia [facility] Res[facility] rate 2021-04-02 15:55:00 18 /min [facility] Body weight 2021-04-02 15:55:00 79.379 kg [facility] BMI 2021-04-02 15:55:00 35.35 kg/m2 [facility] Oxygen saturation in 2021-04-02 15:55:00 99 /min [facility] Arterial blood by [facility] Pulse oximetry Branch Systolic blood 2020-09-15 14:30:00 123 mm[Hg] Univer sity of pressure [facility] Diastolic blood 2020-09-15 14:30:00 81 mm[Hg] Unive rsity of pressure [facility] Heart rate 2020-09-15 14:30:00 73 /min [facility]i [facility] Body temperature 2020-09-15 14:30:00 36.22 Lilia Univ ersity of [facility] Respiratory rate 2020-09-15 14:30:00 16 /min Univ ersity of [facility] Body weight 2020-09-15 14:30:00 79.55 kg Universi ty [facility] BMI 2020-09-15 14:30:00 35.42 kg/m2 Universi ty of [facility] Oxygen saturation in 2020-09-15 14:30:00 98 /min [facility] Arterial blood by [facility] Pulse oximetry Branch Systolic blood 2020-07-14 21:38:00 118 mm[Hg] Univer sity of pressure [facility] Diastolic blood 2020-07-14 21:38:00 81 mm[Hg] Unive rsity of pressure [facility] Heart rate 2020-07-14 21:38:00 87 /min [facility] Body height 2020-07-14 21:38:00 149.9 cm [facility]i [facility] Body weight 2020-07-14 21:38:00 79.833 kg [facility] BMI 2020-07-14 21:38:00 35.55 kg/m2 [facility] Systolic blood 2020-04-28 15:40:00 108 mm[Hg] Univer sity of pressure [facility] Diastolic blood 2020-04-28 15:40:00 72 mm[Hg] Unive rsity of pressure [facility] Heart rate 2020-04-28 15:40:00 80 /min [facility] Respiratory rate 2020-04-28 15:40:00 19 /min Univ ersity of [facility] Body height 2020-04-28 15:40:00 149.9 cm [facility] Body weight 2020-04-28 15:40:00 81.103 kg [facility] BMI 2020-04-28 15:40:00 36.11 kg/m2 [facility] Systolic blood 2020-03-10 17:14:00 106 mm[Hg] Univer sity of pressure [facility] Diastolic blood 2020-03-10 17:14:00 57 mm[Hg] Unive rsity of pressure [facility] Heart rate 2020-03-10 17:14:00 76 /min Universi [facility] Respiratory rate 2020-03-10 17:14:00 19 /min Univ ersity of [facility] Body height 2020-03-10 17:14:00 149.9 cm [facility] Body weight 2020-03-10 17:14:00 82.555 kg [facility]i [facility] BMI 2020-03-10 17:14:00 36.76 kg/m2 [facility] Oxygen saturation in 2020-03-10 17:14:00 98 /min University of Arterial blood by [place] [employer] Pulse oximetry Branch Systolic blood 2020-03-10 17:14:00 106 mm[Hg] Univer sity of pressure [facility] Diastolic blood 2020-03-10 17:14:00 57 mm[Hg] Unive rsity of pressure [facility] Heart rate 2020-03-10 17:14:00 76 /min Universi [facility] Respiratory rate 2020-03-10 17:14:00 19 /min Univ ersity of [facility] Body height 2020-03-10 17:14:00 149.9 cm Universi [facility] Body weight 2020-03-10 17:14:00 82.555 kg [facility] BMI 2020-03-10 17:14:00 36.76 kg/m2 [facility] Oxygen saturation in 2020-03-10 17:14:00 98 /min University of Arterial blood by [place] [employer] Pulse oximetry Branch Systolic blood 2019-07-28 21:40:00 128 mm[Hg] Univer sity of pressure [facility] Diastolic blood 2019-07-28 21:40:00 81 mm[Hg] Unive rsity of pressure [facility] Heart rate 2019-07-28 21:40:00 107 /min [facility] Body temperature 2019-07-28 21:40:00 38 Lilia [facility] Respiratory rate 2019-07-28 21:40:00 18 /min [facility] Body height 2019-07-28 21:40:00 149.9 cm [facility] Body weight 2019-07-28 21:40:00 81.647 kg [facility] BMI 2019-07-28 21:40:00 36.36 kg/m2 [facility] Oxygen saturation in 2019-07-28 21:40:00 100 /min [facility] Arterial blood by [facility] Pulse oximetry Branch Procedures Procedure Date / Time Performing Clinician Source Performed ASSIGNMENT OF BENEFITS 2021-04-02 16:55:08 Doctor Unassigned, No [facility] CONSENT/REFUSAL FOR 2021-04-02 15:49:51 Doctor Unassigned, No [facility] [place] [facility] Name Medical Branch DME/SUPPLY JUSTIFICATION 2020-07-14 05:01:00 Doctor Unassigned, No [facility] DME/SUPPLY JUSTIFICATION 2020-06-30 05:01:00 Doctor Unassigned, No [facility] CONSENT/REFUSAL FOR 2020-06-11 15:03:13 Doctor Unassigned, No [facility] [place] [facility] Name Medical Branch CONSENT/REFUSAL FOR 2020-06-11 15:03:13 Doctor Unassigned, No [facility] [place] [facility] Name Medical Branch ASSIGNMENT OF BENEFITS 2020-06-11 15:02:59 Doctor Unassigned, No [facility] ASSIGNMENT OF BENEFITS 2020-06-11 15:02:59 Doctor Unassigned, No [facility] CONSENT/REFUSAL FOR 2020-03-10 17:01:35 Doctor Unassigned, No [facility] [place] [facility] Name Medical Branch 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 2020-02-09 06:01:00 Doctor Unassigned, N o [facility] REFERRAL Name Medical Branch COVID-19 (ID NOW RAPID 2019-07-28 21:46:00 Dann Gandhi [facility] TESTING) Medical Branch NOTICE OF PRIVACY 2019-07-28 21:15:24 Doctor Unassigned, No [facility] Name Medical Branch Plan of Care Planned Activity Planned Date Details Comments Source Future Scheduled 2025-11-18 DTaP,Tdap,and Td Univers ity of Test 00:00:00 Vaccines (4 - Td) [place] [facility] [code = Branch DTaP,Tdap,and Td Vaccines (4 - Td)] Future Scheduled 2025-11-18 DTaP,Tdap,and Td Univers ity of Test 00:00:00 Vaccines (4 - Td) [place] [facility] [code = Branch DTaP,Tdap,and Td Vaccines (4 - Td)] Future Scheduled 2021-03-10 Depression University of Test 00:00:00 screening [facility] (procedure) [code Branch = [id number]] Future Scheduled 2021-03-10 Depression University of Test 00:00:00 screening [facility] (procedure) [code Branch = [id number]] Future Scheduled 2020-10-06 INFLUENZA VACCINE Univer sity of Test 00:00:00 (Season Ended) [facility] [code = INFLUENZA Branch VACCINE (Season Ended)] Future Scheduled 2020-10-06 INFLUENZA VACCINE Univer sity of Test 00:00:00 (Season Ended) [facility] [code = INFLUENZA Branch VACCINE (Season Ended)] Diagnostic Test 2020-06-11 COVID-19 (ID NOW Expected: Universi ty of Pending 00:00:00 RAPID TESTING) 06/11/2020, [facility] [code = 59164-0] Expires: Branch 06/11/2021 Future Scheduled 2018-01-25 Screening for University of Test 00:00:00 malignant neoplasm [place] [facility] cerv[facility] Branch (procedure) [code = 464044780] Future Scheduled 2018-01-25 Screening for University of Test 00:00:00 malignant neoplasm [place] [facility] of cervix Branch (procedure) [code = 029581356] Future Scheduled 2008-12-05 VARICELLA VACCINES Unive rsity of Test 00:00:00 (1 of 2 - 2-dose [place] [facility] childhood series) Branch [code = VARICELLA VACCINES (1 of 2 - 2-dose childhood series)] Future Scheduled 2008-12-05 VARICELLA VACCINES Unive rsity of Test 00:00:00 (1 of 2 - 2-dose [place] [facility] childhood series) Branch [code = VARICELLA VACCINES (1 of 2 - 2-dose childhood series)] Future Scheduled 2005 SARS-CoV-2 University of Test 00:00:00 (COVID-19) Vaccine [place] [facility] (1) [code = Branch SARS-CoV-2 (COVID-19) Vaccine (1)] Future Scheduled 2005 SARS-CoV-2 [facility] 00:00:00 (COVID-19) Vaccine [place] [facility] (1) [code = Branch SARS-CoV-2 (COVID-19) Vaccine (1)] Encounters Start End Encounter Admission Attending Care Care Encounter Source Date/Time Date/Time Type Type Clinicians Facility Department ID 2020-12-05 Emergency [facility] [id number] Univers 01:26:54 ity of [facility] 2020-12-03 Emergency [facility] [id number] Univers 02:15:35 ity [facility] 2021-04-02 2021-04-02 Emergency X NICOLASA [facility] ERT [id number] Univers 09:56:00 11:14:00 RITESH kamara [facility] 2021-04-02 2021-04-02 Emergency Nicolasa [facility] [id number] Univers 09:56:00 11:14:00 Ritesh BENDER [id number] i ty [facility] [id number] [phone] [facility] [address] [place] 2020-09-15 2020-09-15 Outpatient R STEFANO ESTEBAN [facility] [id number] Univers 10:00:00 10:00:00 STEFANO ESTEBAN [id number] ity [facility] 2020-09-15 2020-09-15 Outpatient R STEFANO ESTEBAN [facility] [id number] Univers 09:40:00 09:45:10 STEFANO ESTEBAN [facility] 2020-09-15 2020-09-15 Office Eulalia [facility] [id number] Univers 09:28:39 09:45:10 Visit Stefano Bender [id number] ity [facility] [id number] [facility] [phone] Mo dical nal 085 [facility] 2020-08-18 2020-08-18 Outpatient R EULALIA STEFANO [facility] [id number] Univers 11:00:00 11:00:00 [facility]AN 2106 [id number] [facility] [place] 2020-07-21 2020-07-21 Outpatient R EULALIA NALDOIDLavern [facility] [id number] Univers 11:00:00 11:00:00 STEFANO ESTEBAN 2105 16 [facility] [place] 2020-07-14 2020-07-14 Office Eulalia [facility] [id number] Univers 16:34:23 17:04:23 Visit Stefano Bender [id number] ity [facility] [id number] [phone] [address] 2020-07-14 2020-07-14 Outpatient R STEFANO ETSEBAN [facility] [id number] Univers 16:30:00 16:30:00 STEFANO ESTEBAN 2105 10 [facility] 2020-07-14 2020-07-14 Outpatient R NALDO ESTEBANIDLavern [facility] [id number] Univers 16:30:00 16:30:00 STEFANO ESTEBAN [facility] 2020-07-14 2020-07-14 Orders Doctor SCHERER 1.2.840.114 [id number] Univers 00:00:00 00:00:00 Only Unassigned, SITA [id number] [facility] [id number] Rob as [id number] [address] 2020-06-30 2020-06-30 Outpatient R STEFANO ESTEBAN [facility] [id number] Univers 15:00:00 15:00:00 STEFANO ESTEBAN 2104 ity [facility] 2020-06-30 2020-06-30 Outpatient R STEFANO ESTEBAN [facility] [id number] Univers 15:00:00 15:00:00 STEFANO ESTEBAN [facility] 2020-06-30 2020-06-30 Orders Doctor NIESHA 1.2.840.114 [id number] Univers 00:00:00 00:00:00 Only Unassigned, SITA [id number] ity of [place] [facility] [id number] Rob as [phone] [facility] 009 Branch 2020-06-22 2020-06-22 Telephone Eulalia [facility] 1.2.840.114 [id number] Univers 00:00:00 00:00:00 Strahil Leora Bender [id number] it[id number] [phone] [address] 2020-06-14 2020-06-14 Outpatient R [facility] [id number] Univers 19:30:00 19:30:00 [id number] ity [facility] 2020-06-14 2020-06-14 Outpatient R STEFANO ESTEBAN [facility] [id number] Univers 19:30:00 19:30:00 NALDO ESTEBANHIL ity [facility] 2020-06-14 2020-06-14 Management Trainee [employer] 1, [facility] Sleep Lab Bed [facility] 1. 2.840.114 [id number] Univers 15:01:45 17:31:45 Visit Stefano Esteban 350.1.13. 10 ity [id number] [phone] [facility] 193 Branch 2020-06-11 2020-06-11 Laboratory Only, [facility] Test [facility] 1.2.840. 114 [id number] Univers 10:02:22 10:17:22 Only Kevin Philip [id number] ity [place] [id number] [facility] 353 Branch 2020-06-11 2020-06-11 Outpatient R [facility] [id number] Univers 09:45:00 09:45:00 [id number] ity [facility] 2020-06-11 2020-06-11 Outpatient R [facility] [id number] Univers 09:45:00 09:45:00 ity [facility] 2020-06-11 2020-06-11 Orders Doctor NIESHA 1.2.840.114 [id number] Univers 00:00:00 00:00:00 Only Unassigned, SITA [id number] [facility] [id number] Rob as [id number] [address] 2020-05-29 2020-05-29 Outpatient R [facility] [id number] Univers 19:30:00 19:30:00 [id number] ity [facility] 2020-05-29 2020-05-29 Outpatient R STEFANO ESTEBAN [facility] [id number] Univers 19:30:00 19:30:00 [facility] 2020-05-27 2020-05-27 Outpatient R [facility] [id number] Univers 08:15:00 08:15:00 [id number] ity [facility] 2020-05-27 2020-05-27 Outpatient R [facility] [id number] Univers 08:15:00 08:15:00 [facility] [place] 2020-04-28 2020-04-28 Office Eulalia [facility] [id number] Univers 10:31:52 11:01:52 Visit Stefano Bender [id number] [facility] 4.2.7.2.686 Vishnu Dubose [phone] Mo dic[address] 2020-04-28 2020-04-28 Outpatient R STEFNAO ESTEBAN [facility] [id number] Univers 10:30:00 10:30:00 STEFANO ESTEBAN 2102 ity [facility] 2020-04-28 2020-04-28 Outpatient R STEFANO ESTEBAN [facility] [id number] Univers 10:30:00 10:30:00 [facility] [place] 2020-04-27 2020-04-27 Patient Uli AZGABBY 1.2.840.114 [id number] Univers 00:00:00 00:00:00 Outreach Roberto PRIMARY [id number] i ty [facility] [place]2.7.2.[place] [phone] Mo dical 388 Branch 2020-04-14 2020-04-14 Outpatient R STEFANO ESTEBAN [facility] [id number] Univers 11:30:00 11:30:00 STEFANO ESTEBAN 2103 10 [facility] 2020-04-14 2020-04-14 Outpatient R NALDO ESTEBANIDLavern [facility] [id number] Univers 11:30:00 11:30:00 STEFANO ESTEBAN [facility] 2020-04-02 2020-04-02 Outpatient R [facility] [id number] Univers 19:30:00 19:30:00 [id number] [facility] 2020-04-02 2020-04-02 Outpatient R EULALIA NALDOIDLavern [facility] [id number] Univers 19:30:00 19:30:00 STEFANO ESTEBAN [facility] 2020-04-02 2020-04-02 Outpatient R NALDO ESTEBANIDLavern [facility] [id number] Univers 19:30:00 19:30:00 EULALIA NALDOIDLavern [facility] 2020-04-02 2020-04-02 Management Trainee [employer] 1, [facility] Sleep Lab Bed [facility] 1. 2.840.114 [id number] Univers 12:55:51 15:25:51 Visit Stefano Esteban [place] 350.1.13. 10 ity [facility] 4[place]2.[place].2.[place] [id number] [address] 2020-04-01 2020-04-01 Laboratory Only, [facility] 1.2.840.114 [id number] 14:48:56 15:03:56 Only Test [place] 350.1.13.10 [place] 4.2.7.2.686 [place] [id number] [facility] 2020-04-01 2020-04-01 Laboratory Only, Adc Test [facility] 1.2.840. 114 [id number] Univers 14:48:56 15:03:56 Only Kevin Philip 350.1.13.10 [facility] 4.2.7.2.686 [facility] [phone] [address] 2020-04-01 2020-04-01 Outpatient R [facility] [id number] Univers 13:45:00 13:45:00 [id number] ity [facility] 2020-04-01 2020-04-01 Outpatient R [facility] [id number] Univers 13:45:00 13:45:00 ity [facility] 2020-04-01 2020-04-01 Outpatient R TAMERA [facility] [id number] Univers 13:45:00 13:45:00 [facility] 2020-03-31 2020-03-31 Outpatient R [facility] [id number] Univers 08:45:00 08:45:00 [id number] [facility] [place] 2020-03-31 2020-03-31 Outpatient R [facility] [id number] Univers 08:45:00 08:45:00 [facility] [place] 2020-03-10 2020-03-10 Office Eulalia [facility] [id number] 11:02:22 11:32:22 Visit Stefano Bender 350.1.13.10 [place] 4.2.7.2.686 Professio [phone] [address] 2020-03-10 2020-03-10 Office Eulalia [facility] [id number] Univers 11:02:22 11:32:22 Visit Stefano Bender 350.1.13.10 [facility] 4.2.7.2.686 [facility] Professio [id number] Mo dical [address] 2020-03-10 2020-03-10 Outpatient STEFANO ESTEBAN [facility] [id number] Univers 11:00:00 11:00:00 STEFANO ESTEBAN [id number] ity [facility] 2020-03-10 2020-03-10 Outpatient R NALDO ESTEBANIDLavern [facility] [id number] Univers 11:00:00 11:00:00 STEFANO ESTEBAN [facility] 2020-03-10 2020-03-10 Orders Doctor NIESHA 1.2.840.114 [id number] Univers 00:00:00 00:00:00 Only Unassigned, SITA 350.1.13.10 ity of [place] [facility] 4.2.7.2.686 Rob as [id number] [address] 2020-02-14 2020-02-14 Outpatient R [facility] [id number] Univers 19:30:00 19:30:00 [id number] ity [facility] 2020-02-14 2020-02-14 Outpatient [facility] [id number] Univers 19:30:00 19:30:00 GONZALEZSTEFANO VASQUEZ [facility] 2020-02-12 2020-02-12 Outpatient R [facility] [id number] Univers 08:30:00 08:30:00 [id number] [facility] 2020-02-09 2020-02-09 Orders Doctor NIESHA 1.2.840.114 [id number] Univers 00:00:00 00:00:00 Only Unassigned, SITA 350.1.13.10 ity of [place] [facility] 4.2.7.2.686 Rob as [phone] [facility] [address] [place] 2019-07-30 2019-07-30 NIESHA Nathan 1.2.840.114 [id number] Univers 00:00:00 00:00:00 (Out) Lana Darden SITA 350.1.13.10 ity of [facility] 4.2.7.2.686 Rob as [phone] [facility] [address] [place] 2019-07-29 2019-07-29 [facility] 1.2.412.099 [id number] Univers 00:00:00 00:00:00 Patient [place] 350.1.13.10 i ty of [place] Not [place] 4.2.7.2.686 Rob as Have A [place] [id number] [facility] 353 Branch 2019-07-28 2019-07-28 Emergency Jac Ogden [facility] 1.2.840.114 [id number] Univers 17:19:10 18:36:00 Inga Bender 350.1.13.10 i ty [place]2.[place] [phone] [facility] 084 Branch 2019-07-28 2019-07-28 Telephone NIESHA Hewitt 1.2.352.128 [id number] Univers 00:00:00 00:00:00 Lana BUCKNER 350.1.13.10 ity of [facility] 4.2.7.2.686 Rob as [phone] [facility] 019 Branch 2015-05-04 2015-05-04 Outpatient Pñea PETEY ALVAREZ [facility] NORA [id number] Univers 06:49:00 10:36:00 [facility] Results Test Description Test Time Test Comments Results Result Comments Source COVID-19 (ID NOW RAPID TESTING) 2019-07-28 22:19:00 Test Item Value Reference Range Interpretation Comme nts SARS-CoV-2 Rapid ID NOW (test code Positive Not Detected A = 80531-5) JEANMARIE (test code = JEANMARIE) ID NOW COVID-19 Assay is an isothermal nucleic acid amplification test intended for the qualitative detection of nucleic acid from SARS-CoV-2 viral RNA in nasopharyngeal (REFRACTORY FURNACE DESIGNER) specimens. It is used under Emergency Use Authorization (EUA) by FDA. The limit of detection (LOD) of the assay is 125 Genome Equivalents/mL. A positive result is indicative of the presence of SARS-CoV-2 RNA. ?Clinical correlation with patient history and other diagnostic information is necessary to determine patient infection status. A negative (Not Detected) result does not preclude SARS-CoV-2 infection. In patients with clinical symptoms and other tests that are consistent with SARS-CoV-2 infection, negative results should be treated as presumptive negative and a new specimen should be tested with alternative PCR molecular test. Invalid: Please collect a new specimen for repeat patient testing if clinically indicated. Lab Interpretation (test code = Abnormal 67307-7) [facility]
--- NOTE | 2021-09-11 22:39 | EDPHYS ---
Physician Documentation [facility] Name: Teofilo Lee Age: 30 yrs Sex: Female : 1990 Arrival Date: 09/11/2021 Time: 22:02 Bed 17 Private MD: ED Physician Cas Geller HPI: 09/11 22:29 This 30 yrs old Black Female presents to ER via Ambulatory with complaints of STD snw Exposure. 22:29 Onset: The symptoms/episode began/occurred acutely. Associated signs and symptoms: The snw patient has no apparent associated signs or symptoms. Modifying factors: The patient symptoms are alleviated by. The patient has not experienced similar symptoms in the past. It is unknown whether or not the patient has recently seen a physician. Pt sees [place] doctor. Pt found evidence of treatment at [facility] for Partner. Pt is concerned she may have been exposed to a STI. 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 - Social history:: Smoking status: Patient denies any tobacco usage or history of. ROS: 22:27 Constitutional: Negative for fever, chills, and weight loss, Eyes: Negative for injury, snw pain, redness, and discharge, ENT: Negative for injury, pain, and discharge, Neck: Negative for injury, pain, and swelling, Cardiovascular: Negative for chest pain, palpitations, and edema, Respiratory: Negative for shortness of breath, cough, wheezing, and pleuritic chest pain, Abdomen/GI: Negative for abdominal pain, nausea, vomiting, diarrhea, and constipation, Back: Negative for injury and pain, MS/Extremity: Negative for injury and deformity, Skin: Negative for injury, rash, and discoloration, Neuro: Negative for headache, weakness, numbness, tingling, and seizure, Psych: Negative for depression, anxiety, suicide ideation, homicidal ideation, and hallucinations. 22:27 : Positive for potential exposure to STI, partner was treated for chlamydia, gonorrhea . Exam: 22:27 Constitutional: This is a well developed, well nourished patient who is awake, alert, snw and in no acute distress. Head/Face: Normocephalic, atraumatic. Eyes: Pupils equal round and reactive to light, extra-ocular motions intact. Lids and lashes normal. Conjunctiva and sclera are non-icteric and not injected. Cornea within normal limits. Periorbital areas with no swelling, redness, or edema. ENT: Nares patent. No nasal discharge, no septal abnormalities noted. Tympanic membranes are normal and external auditory canals are clear. Oropharynx with no redness, swelling, or masses, exudates, or evidence of obstruction, uvula midline. Mucous membranes moist. Neck: Trachea midline, no thyromegaly or masses palpated, and no cervical lymphadenopathy. Supple, full range of motion without nuchal rigidity, or vertebral point tenderness. No Meningismus. Chest/axilla: Normal chest wall appearance and motion. Nontender with no deformity. No lesions are appreciated. Cardiovascular: Regular rate and rhythm with a normal S1 and S2. No gallops, murmurs, or rubs. Normal PMI, no JVD. No pulse deficits. Respiratory: Lungs have equal breath sounds bilaterally, clear to auscultation and percussion. No rales, rhonchi or wheezes noted. No increased work of breathing, no retractions or nasal flaring. Abdomen/GI: Soft, non-tender, with normal bowel sounds. No distension or tympany. No guarding or rebound. No evidence of tenderness throughout. Back: No spinal tenderness. No costovertebral tenderness. Full range of motion. Skin: Warm, dry with normal turgor. Normal color with no rashes, no lesions, and no evidence of cellulitis. MS/ Extremity: Pulses equal, no cyanosis. Neurovascular intact. Full, normal range of motion. Neuro: Awake and alert, GCS 15, oriented to person, place, time, and situation. Cranial nerves II-XII grossly intact. Motor strength 5/5 in all extremities. Sensory grossly intact. Cerebellar exam normal. Normal gait. Psych: Awake, alert, with orientation to person, place and time. Behavior, mood, and affect are within normal limits. Vital Signs: 22:25 BP 114 / 73; Pulse 65; Resp 18 S; Pulse Ox 100% on R/A; bb MDM: 22:30 Data reviewed: vital signs, nurses notes. Data interpreted: Pulse oximetry: on room air snw is 100 %. Interpretation: normal. Counseling: I had a detailed discussion with the patient and/or guardian regarding: the historical points, exam findings, and any diagnostic results supporting the discharge/admit diagnosis, the need for outpatient follow up. 22:39 Patient medically screened. snw Administered Medications: 22:53 Drug: Rocephin (cefTRIAXone) 250 mg Route: IM; Site: right deltoid; 22:54 Follow up: Response: No adverse reaction; Medication administered at discharge. 22:54 Drug: Zithromax (azithromycin) 1 grams Route: PO; 22:54 Follow up: Response: No adverse reaction; Medication administered at discharge. tw Disposition: 09/12 07:18 Co-signature as Attending Physician, Cas Geller MD. [email or web address] Disposition Summary: 09/11/21 22:39 Discharge Ordered Location: Home snw Condition: Stable snw Diagnosis - Contact with and (suspected) exposure to infections with a predominantly sexual snw mode of transmission Followup: snw - With: Emergency Department - When: As needed - Reason: Followup: snw - With: Private Physician - When: 1 - 2 days - Reason: Recheck today's complaints, Continuance of care, Re-evaluation by your physician Discharge Instructions: - Discharge Summary Sheet snw - Preventing Sexually Transmitted Infections, Adult snw Forms: - Medication Reconciliation Form snw - Thank You Letter snw - Antibiotic Education snw - Prescription Opioid Use snw Signatures: Matilde Rowan FNP-C FNP-Csnw Zee Araujo RN RN Cas Milan MD MD [facility] Guerita Pereira [facility]
--- NOTE | 2021-09-11 22:39 | ER ---
Nurse's Notes [facility] Name: Teofilo Lee Age: 30 yrs Sex: Female : 1990 Arrival Date: 09/11/2021 Time: 22:02 Bed 17 Private MD: Diagnosis: Contact with and (suspected) exposure to infections with a predominantly sexual mode of transmission Presentation: 09/11 22:25 Chief complaint: Patient states: she thinks she was exposed to an STI. Coronavirus bb screen: At this time, the client does not indicate any symptoms associated with coronavirus-19. Ebola Screen: No symptoms or risks identified at this time. Initial Sepsis Screen: Does the patient meet any 2 criteria? No. Patient's initial sepsis screen is negative. Does the patient have a suspected source of infection? No. Patient's initial sepsis screen is negative. Risk Assessment: Do you want to hurt yourself or someone else? Patient reports no desire to harm self or others. Onset of symptoms was September 11, 2021. 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 - Social history:: Smoking status: Patient denies any tobacco usage or history of. Screenin:48 Abuse screen: Denies threats or abuse. Denies injuries from another. Nutritional tw5 screening: No deficits noted. Tuberculosis screening: No symptoms or risk factors identified. Fall Risk None identified. Assessment: 22:48 General: Appears in no apparent distress. Behavior is calm, cooperative, appropriate tw5 for age. Pain: Denies pain. Cardiovascular: No deficits noted. Respiratory: No deficits noted. GI: No deficits noted. Vital Signs: 22:25 BP 114 / 73; Pulse 65; Resp 18 S; Pulse Ox 100% on R/A; bb ED Course: 22:02 Patient arrived in ED. as 22:10 Matilde Rowan FNP-C is PHCP. snw 22:10 Cas Geller MD is Attending Physician. snw 22:26 Triage completed. bb 22:26 Arm band placed on Patient placed in an exam room, on a stretcher, on pulse oximetry. vanessa 22:44 Guerita Pereira is Primary Nurse. tw5 22:48 Patient has correct armband on for positive identification. tw5 22:48 No provider procedures requiring assistance completed. Patient did not have IV access tw5 during this emergency room visit. Administered Medications: 22:53 Drug: Rocephin (cefTRIAXone) 250 mg Route: IM; Site: right deltoid; tw5 22:54 Follow up: Response: No adverse reaction; Medication administered at discharge. tw5 22:54 Drug: Zithromax (azithromycin) 1 grams Route: PO; tw5 22:54 Follow up: Response: No adverse reaction; Medication administered at discharge. tw5 Medication: 22:48 VIS not applicable for this client. tw5 Outcome: 22:39 Discharge ordered by MD. snw 22:48 Discharged to home ambulatory. tw5 22:48 Discharge instructions given to patient, Instructed on discharge instructions, follow up and referral plans. sti testing Demonstrated understanding of instructions, follow-up care, medications. 22:48 Condition: good tw5 22:54 Patient left the ED. tw5 Signatures: Matilde Rowan, RIAC COAL SCREENER-Morena Villaseñor Brenda, RN RN Guerita Gandhi tw5
[2021-09-11] MEDS ORDERED: CEFTRIAXONE 500 MG/VIAL ONE (22:53)
[2021-09-11] MEDS ORDERED: LIDOCAINE 1% MPF 2 ML AMPULE ONE (22:54)
[2021-09-11] MEDS ORDERED: AZITHROMYCIN 250 MG TAB ONE (22:54)
[2021-09-11 23:21] VITALS: BP 114/73; O2SAT 100
== END 2021-09-11 22:54 | disposition home or self-care (01) ==
LOC: ER 21:56
DX: Z20.2 Contact with and (suspected) exposure to infections with a predominantly sexual mode of transmission (principal)
CPT/HCPCS: 96372; 99283; J0696